=== PATIENT | male | born 1930 | race Caucasian/White ===

== ENCOUNTER 2017-01-18 14:00 | Outpatient (CLI) | payer MEDICARE, OTHER | END 2017-01-18 14:01 | disposition home or self-care (01) | DX: D69.6 Thrombocytopenia, unspecified (principal); M47.816 Spondylosis without myelopathy or radiculopathy, lumbar region; R79.89 Other specified abnormal findings of blood chemistry ==

== ENCOUNTER 2017-04-23 14:42 | Outpatient (CLI) | payer MEDICARE, OTHER ==
[2017-04-23 19:18] LABS: ALBUMIN/GLOBULIN RATIO 1.4 (1.0-2.2); BILIRUBIN,TOTAL 0.6 mg/dL (0.2-1.0); BUN - BLOOD UREA NITROGEN 19 mg/dL (6-20); CALCIUM 9.5 mg/dL (8.5-10.3); CARBON DIOXIDE - CO2 31 mmol/L (21-32); CHLORIDE 100 mmol/L (101-111); CHOL/HDL RATIO 3.3 (<5.0); CHOLESTEROL 169 mg/dL; CREATININE 0.9 mg/dL (0.6-1.2); GFR - MDRD 80 (>89); GLUCOSE 97 mg/dL (70-100); HDL CHOLESTEROL 51 mg/dL; LDL/HDL RATIO 1.5 (<3.6); POTASSIUM 4.1 mmol/L (3.5-5.0); SODIUM 139 mmol/L (135-145); TOTAL PROTEIN 6.8 g/dL (6.7-8.2); TRIGLYCERIDES 217 mg/dL; VLDL CHOLESTEROL 43 mg/dL
[2017-04-23 19:25] LABS: BASOPHILS % (AUTO) 0.7 %; EOSINOPHILS # (AUTO) 0.1 10^3/uL (0.0-0.7); EOSINOPHILS % (AUTO) 2.2 %; HCT - HEMATOCRIT 44.3 % (42.0-52.0); HGB - HEMOGLOBIN 14.8 g/dL (14.0-18.0); LYMPHOCYTES # (AUTO) 1.5 10^3/uL (1.5-3.5); LYMPHOCYTES % (AUTO) 22.4 %; MEAN CORPUSCULAR HEMOGLOBIN 31.8 pg (27.0-31.0); MEAN CORPUSCULAR HGB CONC 33.5 g/dL (32.0-36.0); MEAN CORPUSCULAR VOLUME 94.9 fL (80.0-94.0); MEAN PLATELET VOLUME 9.6 fL (7.4-11.4); MONOCYTES # (AUTO) 0.7 10^3/uL (0.0-1.0); MONOCYTES % (AUTO) 10.5 %; NEUTROPHILS # (AUTO) 4.4 10^3/uL (1.5-6.6); NEUTROPHILS % (AUTO) 64.2 %; NUCLEATED RED BLOOD CELLS AUTO 0.1 /100WBC; RED BLOOD COUNT 4.67 10^6/uL (4.70-6.10); RED CELL DISTRIBUTION WIDTH 15.1 % (12.0-15.0); UNCORRECTED WHITE BLOOD COUNT 6.8 x10^3/uL; WHITE BLOOD COUNT 6.8 x10^3/uL (4.8-10.8)
[2017-04-23 20:01] LABS: HEMOGLOBIN A1C 0.7 g/dL
== END 2017-04-23 14:43 | disposition home or self-care (01) ==
LOC: LAB.F 14:42
PROVIDERS: ATTEND Internal Medicine
DX: E11.9 Type 2 diabetes mellitus without complications (principal); I10 Essential (primary) hypertension; J30.9 Allergic rhinitis, unspecified
CPT/HCPCS: 36415; 80053; 80061; 82043; 82570; 83036; 84443; 85025

== ENCOUNTER 2017-05-25 12:37 | Outpatient (CLI) | payer MEDICARE, OTHER | END 2017-05-25 12:38 | disposition home or self-care (01) | LOC: LAB.F 12:37 | PROVIDERS: ATTEND Internal Medicine | DX: R25.2 Cramp and spasm (principal) | CPT/HCPCS: 36415; 83735 ==

== ENCOUNTER 2017-07-23 14:15 | Outpatient (CLI) | payer MEDICARE, OTHER ==
[2017-07-23 18:33] LABS: CALCIUM 9.8 mg/dL (8.5-10.3); CREATININE 0.9 mg/dL (0.6-1.2); POTASSIUM 4.2 mmol/L (3.5-5.0)
[2017-07-23 19:58] LABS: HEMOGLOBIN A1C 0.8 g/dL
== END 2017-07-23 14:16 | disposition home or self-care (01) ==
LOC: LAB.F 14:15
PROVIDERS: ATTEND Internal Medicine
DX: E11.9 Type 2 diabetes mellitus without complications (principal)
CPT/HCPCS: 36415; 80048; 83036

== ENCOUNTER 2018-01-03 10:13 | Outpatient (CLI) | payer MEDICARE, OTHER ==
[2018-01-03 17:51] LABS: ALBUMIN 4.1 g/dL (3.2-5.5); ALBUMIN/GLOBULIN RATIO 1.5 (1.0-2.2); ALKALINE PHOSPHATASE 38 IU/L (42-121); ALT ALANINE AMINOTRANSFERASE 14 IU/L (10-60); AST ASPARTATE AMINOTRANSFERASE 16 IU/L (10-42); BILIRUBIN,TOTAL 0.7 mg/dL (0.2-1.0); BUN - BLOOD UREA NITROGEN 20 mg/dL (6-20); CALCIUM 9.4 mg/dL (8.5-10.3); CARBON DIOXIDE - CO2 29 mmol/L (21-32); CHLORIDE 101 mmol/L (101-111); CHOL/HDL RATIO 3.2 (<5.0); CHOLESTEROL 164 mg/dL; CREATININE 0.9 mg/dL (0.6-1.2); GFR - MDRD 80 (>89); GLUCOSE 121 mg/dL (70-100); HDL CHOLESTEROL 52 mg/dL; LDL CHOLESTEROL,CALCULATED 102 mg/dL; SODIUM 139 mmol/L (135-145); TOTAL PROTEIN 6.9 g/dL (6.7-8.2); VLDL CHOLESTEROL 10 mg/dL
[2018-01-03 18:29] LABS: HB2 TOTAL 16.5 g/dL; HEMOGLOBIN A1C 0.74 g/dL; HEMOGLOBIN A1C % 6.3 % (4.6-6.2)
== END 2018-01-03 10:14 | disposition home or self-care (01) ==
LOC: LAB.F 10:13
PROVIDERS: ATTEND Family Medicine
DX: I10 Essential (primary) hypertension (principal); I25.10 Atherosclerotic heart disease of native coronary artery without angina pectoris; E11.9 Type 2 diabetes mellitus without complications
CPT/HCPCS: 36415; 80053; 80061; 83036; 83721

== ENCOUNTER 2019-07-21 11:36 | Outpatient (CLI) | payer MEDICARE | END 2019-07-21 11:37 | disposition home or self-care (01) | LOC: DI 11:36 | PROVIDERS: ATTEND Internal Medicine Cardiovascular Disease | DX: Z95.2 Presence of prosthetic heart valve (principal); I07.1 Rheumatic tricuspid insufficiency | CPT/HCPCS: 93306 ==

== ENCOUNTER 2020-04-22 08:50 | Outpatient (CLI) | payer MEDICARE ==
[2020-04-22 16:05] LABS: INR 2.6 (0.8-1.2); PT - PROTHROMBIN TIME 27.9 secs (9.9-12.6)
== END 2020-04-22 08:51 | disposition home or self-care (01) ==
LOC: LAB.S 08:50
PROVIDERS: ATTEND Internal Medicine
DX: I48.3 Typical atrial flutter (principal)
CPT/HCPCS: 36415; 85610

== ENCOUNTER 2020-04-26 09:04 | Outpatient (CLI) | payer MEDICARE ==
[2020-04-26 15:27] LABS: INR 1.6 (0.8-1.2); PT - PROTHROMBIN TIME 18.1 secs (9.9-12.6)
== END 2020-04-26 09:05 | disposition home or self-care (01) ==
LOC: LAB.S 09:04
PROVIDERS: ATTEND Nurse Practitioner Family
DX: I48.3 Typical atrial flutter (principal)
CPT/HCPCS: 36415; 85610

== ENCOUNTER 2020-04-29 09:25 | Outpatient (CLI) | payer MEDICARE ==
[2020-04-29 15:08] LABS: INR 2.3 (0.8-1.2); PT - PROTHROMBIN TIME 24.6 secs (9.9-12.6)
== END 2020-04-29 09:26 | disposition home or self-care (01) ==
LOC: LAB.S 09:25
PROVIDERS: ATTEND Nurse Practitioner Family
DX: I48.3 Typical atrial flutter (principal)
CPT/HCPCS: 36415; 85610

== ENCOUNTER 2020-05-07 09:12 | Outpatient (CLI) | payer MEDICARE ==
[2020-05-07 15:11] LABS: INR 1.9 (0.8-1.2)
== END 2020-05-07 09:13 | disposition home or self-care (01) ==
LOC: LAB.S 09:12
PROVIDERS: ATTEND Nurse Practitioner Family
DX: I48.3 Typical atrial flutter (principal)
CPT/HCPCS: 36415; 85610

== ENCOUNTER 2020-05-10 09:18 | Outpatient (CLI) | payer MEDICARE ==
[2020-05-10 16:05] LABS: INR 2.7 (0.8-1.2); PT - PROTHROMBIN TIME 29.3 secs (9.9-12.6)
== END 2020-05-10 09:19 | disposition home or self-care (01) ==
LOC: LAB.S 09:18
PROVIDERS: ATTEND Nurse Practitioner Family
DX: I48.3 Typical atrial flutter (principal)
CPT/HCPCS: 36415; 85610

== ENCOUNTER 2020-05-13 09:30 | Outpatient (CLI) | payer MEDICARE ==
[2020-05-13 15:32] LABS: INR 1.8 (0.8-1.2); PT - PROTHROMBIN TIME 20.3 secs (9.9-12.6)
== END 2020-05-13 09:31 | disposition home or self-care (01) ==
LOC: LAB.S 09:30
PROVIDERS: ATTEND Nurse Practitioner Family
DX: I48.3 Typical atrial flutter (principal)
CPT/HCPCS: 36415; 85610

== ENCOUNTER 2020-05-17 09:26 | Outpatient (CLI) | payer MEDICARE ==
[2020-05-17 15:32] LABS: PT - PROTHROMBIN TIME 22.4 secs (9.9-12.6)
== END 2020-05-17 09:27 | disposition home or self-care (01) ==
LOC: LAB.S 09:26
PROVIDERS: ATTEND Nurse Practitioner Family
DX: I48.3 Typical atrial flutter (principal)
CPT/HCPCS: 36415; 85610

== ENCOUNTER 2020-05-24 09:18 | Outpatient (CLI) | payer MEDICARE ==
[2020-05-24 15:18] LABS: PT - PROTHROMBIN TIME 32.4 secs (9.9-12.6)
== END 2020-05-24 09:19 | disposition home or self-care (01) ==
LOC: LAB.S 09:18
PROVIDERS: ATTEND Nurse Practitioner Family
DX: I48.3 Typical atrial flutter (principal)
CPT/HCPCS: 36415; 85610

== ENCOUNTER 2020-06-15 09:43 | Outpatient (CLI) | payer MEDICARE ==
[2020-06-15 14:58] LABS: INR 1.9 (0.8-1.2)
== END 2020-06-15 09:44 | disposition home or self-care (01) ==
LOC: LAB.S 09:43
PROVIDERS: ATTEND Nurse Practitioner Family
DX: I48.3 Typical atrial flutter (principal)
CPT/HCPCS: 36415; 85610

== ENCOUNTER 2020-06-21 09:23 | Outpatient (CLI) | payer MEDICARE ==
[2020-06-21 15:21] LABS: INR 2.4 (0.8-1.2); PT - PROTHROMBIN TIME 26.4 secs (9.9-12.6)
== END 2020-06-21 09:24 | disposition home or self-care (01) ==
LOC: LAB.S 09:23
PROVIDERS: ATTEND Nurse Practitioner Family
DX: I48.3 Typical atrial flutter (principal)
CPT/HCPCS: 36415; 85610

== ENCOUNTER 2020-07-05 09:26 | Outpatient (CLI) | payer MEDICARE ==
[2020-07-05 14:38] LABS: INR 2.1 (0.8-1.2); PT - PROTHROMBIN TIME 22.6 secs (9.9-12.6)
== END 2020-07-05 09:27 | disposition home or self-care (01) ==
LOC: LAB.S 09:26
PROVIDERS: ATTEND Nurse Practitioner Family
DX: I48.3 Typical atrial flutter (principal)
CPT/HCPCS: 36415; 85610

== ENCOUNTER 2020-07-21 13:39 | Outpatient (CLI) | payer MEDICARE | END 2020-07-21 13:40 | disposition critical access hospital (66) | LOC: EMS 13:39 | PROVIDERS: ATTEND Surgery | DX: R53.1 Weakness (principal); R42 Dizziness and giddiness; H53.8 Other visual disturbances; R26.81 Unsteadiness on feet | CPT/HCPCS: A0425; A0427 ==

== ENCOUNTER 2020-07-21 14:25 | Emergency (ER) | payer MEDICARE ==
--- NOTE | 2020-07-21 14:41 | ED Physician Documentation ---
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 He felt very unsteady on his feet and felt worse when he turned his head side to side, possibly worse to the left side. HE also noted change in his vision, stating he saw fine black lines when he looked up at the ceiling. He noticed a similar visiion change yesterday when he was looking at his face while shaving. He denies head injury. No headache, facial weakness/numbness, extremity weakness or paraesthesias, confusion, or word finding difficulties. No chest pain, palpitatons, dyspnea, abd pain, n/v/d, or urinary sx. He has not had a fever, chills, cough or URI sx. No known sick contacts. Denies new meds or mis sing doses of his routine meds. No drugs or alcohol. Denies similar sx in the past. States he had a cardiac ablation about 5 weeks ago and has a follow up appt with his it help desk technician on 07/26, he is on coumadin as well as beta naomie. Review of Systems Constitutional: reports: Reviewed and negative Eyes: reports: Other (change in vision: sees dark black lines at times.). denies: Loss of vision, Decreased vision, Photophobia Ears: reports: Reviewed and negative Nose: reports: Congestion. denies: Rhinorrhea / runny nose, Sinus pressure / pain, Foreign Body Throat: reports: Reviewed and negative Cardiac: reports: Reviewed and negative Respiratory: reports: Reviewed and negative GI: reports: Reviewed and negative : reports: Reviewed and negative Skin: reports: Reviewed and negative Musculoskeletal: reports: Reviewed and negative Neurologic: reports: Other (vertigo and dizziness). denies: Generalized weakness, Focal weakness, Numbness, Difficulty speaking, Near syncope, Syncope, Seizure, Confused, Altered mental status, Unresponsive, Headache, Head injury, LOC Psychiatric: reports: Reviewed and negative Endocrine: reports: Reviewed and negative PD PAST MEDICAL HISTORY - Past Medical History Past Medical History: Yes Cardiovascular: Hypertension, High cholesterol, Coronary artery disease, Atrial fibrillation Respiratory: None Endocrine/Autoimmune: Type 2 diabetes GI: GERD : Incontinence HEENT: Chronic hearing loss, Dental implants Psych: Anxiety Musculoskeletal: Osteoarthritis Derm: None - Past Surgical History Past Surgical History: Yes Cardiovascular: CABG, Coronary stent HEENT: Cataracts Derm: Skin cancer surgery - Present Medications Home Medications: Ambulatory Orders Medication Instructions Recorded Confirmed ALPRAZolam [Xanax] 0.5 mg ORAL DAILY PRN 09/26/15 09/26/15 Aspirin [Aspir 81] 81 mg ORAL DAILY 09/26/15 09/26/15 Atorvastatin [Lipitor] 40 mg ORAL DAILY 09/26/15 09/26/15 Finasteride 5 mg ORAL DAILY 09/26/15 09/26/15 Metoprolol Tartrate 12.5 mg ORAL DAILY 09/26/15 09/26/15 Pantoprazole [Protonix] 20 mg ORAL DAILY 09/26/15 09/26/15 lisinopriL [Lisinopril] 5 mg ORAL DAILY 09/26/15 09/26/15 metFORMIN [Glucophage] 500 mg ORAL DAILY 09/26/15 09/26/15 - Allergies Allergies/Adverse Reactions: Allergies Allergy/AdvReac Type Severity Reaction Status Date / Time No Known Drug Allergies Allergy Verified 07/21/20 14:33 - Social History Does the pt smoke?: No Smoking Status: Never smoker Does the pt drink ETOH?: No Does the pt have substance abuse?: No - Immunizations Immunizations are current?: Yes - POLST Patient has POLST: No PD ED PE NORMAL - Vitals Vital signs reviewed: Yes - General General: Alert and oriented X 3, No acute distress, Well developed/nourished - HEENT HEENT: Atraumatic, PERRL, Ears normal, Moist mucous membranes, Pharynx benign, Other (pt w/ leftward gaze, does not follow EOM to the right past midline but does not have heminopsia, is able to see in both visual haddad. left eyelid droop which is baseline for patient. ). No: Dentition benign (poor dentition, partial dentures) - Neck Neck: Supple, no meningeal sign, No bony TTP - Cardiac Cardiac: RRR, No murmur, No gallop, No rub - Respiratory Respiratory: No respiratory distress, Clear bilaterally - Abdomen Abdomen: Normal bowel sounds, Soft, Non tender, Non distended - Derm Derm: Normal color, Warm and dry, No rash - Extremities Extremities: No deformity, No tenderness to palpate, Normal ROM s pain, No calf tenderness / cord - Neuro Neuro: Alert and oriented X 3, No motor deficit, No sensory deficit, Normal speech Eye Opening: Spontaneous Motor: Obeys Commands Verbal: Oriented GCS Score: 15 - Psych Psych: Normal mood, Normal affect Results - Vitals Vitals: Vital Signs - 24 hr 07/21/20 07/21/20 07/21/20 14:33 15:06 15:30 Temperature 36.9 C Heart Rate 84 73 73 Respiratory 12 16 20 Rate Blood Pressure 126/105 H 123/61 145/77 H O2 Saturation 93 95 100 07/21/20 07/21/20 07/21/20 16:00 16:30 17:00 Temperature Heart Rate 70 74 70 Respiratory 19 20 18 Rate Blood Pressure 139/78 H 129/70 127/81 H O2 Saturation 98 94 94 07/21/20 07/21/20 07/21/20 17:30 18:00 20:00 Temperature Heart Rate 76 75 80 Respiratory 21 20 16 Rate Blood Pressure 137/84 H 142/76 H 155/87 H O2 Saturation 95 96 96 07/21/20 20:30 Temperature Heart Rate 79 Respiratory 18 Rate Blood Pressure 138/86 H O2 Saturation 99 Oxygen O2 Source Room air - EKG (time done) 15:10 Rate: Rate (enter#) (69) Intervals: Normal [place] Ischemia: Normal ST segments Compare to prior EKG: Other (prior RBB. ) Computer interpretation: Agree with computer - Labs Labs: Laboratory Tests 07/21/20 07/21/20 07/21/20 14:50 14:50 14:50 WBC 8.1 RBC 4.35 L Hgb 13.5 L Hct 42.4 MCV 97.5 H MCH 31.0 MCHC 31.8 L RDW 15.8 H Plt Count 134 MPV 10.8 Neut # (Auto) 5.7 Lymph # (Auto) 1.2 L Grundy # (Auto) 0.9 Eos # (Auto) 0.2 Baso # (Auto) 0.1 Absolute Nucleated RBC 0.00 Nucleated RBC % 0.0 PT 25.7 H INR 2.4 H Sodium Potassium Chloride Carbon Dioxide Anion Gap BUN Creatinine Estimated GFR (MDRD) Glucose Calcium Troponin I High Sens 8.5 Urine Color Urine Clarity Urine pH Ur Specific Kaiser Urine Protein Urine Glucose (UA) Urine Ketones Urine Occult Blood Urine Nitrite Urine Bilirubin Urine Urobilinogen Ur Leukocyte Esterase Ur Microscopic Review Urine Culture Comments 07/21/20 07/21/20 14:50 15:32 WBC RBC Hgb Hct MCV MCH MCHC RDW Plt Count MPV Neut # (Auto) Lymph # (Auto) Grundy # (Auto) Eos # (Auto) Baso # (Auto) Absolute Nucleated RBC Nucleated RBC % PT INR Sodium 138 Potassium 3.9 Chloride 101 Carbon Dioxide 26 Anion Gap 11.0 BUN 17 Creatinine 0.9 Estimated GFR (MDRD) 79 L Glucose 137 H Calcium 9.6 Troponin I High Sens Urine Color YELLOW Urine Clarity CLEAR Urine pH 5.5 Ur Specific Kaiser 1.025 Urine Protein NEGATIVE Urine Glucose (UA) NEGATIVE Urine Ketones NEGATIVE Urine Occult Blood NEGATIVE Urine Nitrite NEGATIVE Urine Bilirubin NEGATIVE Urine Urobilinogen 0.2 (NORMAL) Ur Leukocyte Esterase NEGATIVE Ur Microscopic Review NOT INDICATED Urine Culture Comments NOT INDICATED PD MEDICAL DECISION MAKING - ED course Complexity details: reviewed old records, reviewed results, re-evaluated patient, considered differential, d/w patient, d/w family, d/w PMD (Briefly reviewed w/ Dr. Burk) ED course: 89 yo M who presented with dizziness (described by patient as vertigo). On exam he was noted to have a leftward gaze and would not follow via EOM to the right visual field, though stated he could see in the right visual field. Remainder of physical exam negative, CT head negative, labs reassuring. I d/w Dr. Burk and received approval for MRI. We obtained MRI of the brain to r/o CVA or possible cranial nerve lesions. The MRI was negative for acute findings. Pt continued to have dizziness but felt he could safely get into the house w/ assistance from his . Labs and imaging findings reviewed in detail w/ pt and his . I advised follow up w/ his PCP, consider referral to PT for balance therapy or neuro if no improvement, and may also follow up with refinery operator crude unit for vision changes. Discussed return precautions w/ patient and in detail. Departure - Departure Disposition: 01 Home, Self Care Clinical Impression: Change in vision, Vertigo Condition: Good Instructions: ED Vertigo Unspecified Comments: You presented with dizziness/vertigo and vision changes. We obtained labs which were reassuring, a CT of your brain, and an MRI of the brain and these were negative for acute problems. You do have some sinus congestion and polyps so I would recommend trying Flonase nasal spray and a non-drowsy allergy medication such as cetirizine. Please move slowly and use your walker at home. Follow up with your primary doctor with the next few days. If symptoms are not improving they may refer you to physical therapy or neurology for your persistent dizziness. Discharge Date/Time: 07/21/20 20:39
[2020-07-21 15:09] LABS: BASOPHILS # (AUTO) 0.1 10^3/uL (0.0-0.1); BASOPHILS % (AUTO) 0.6 %; EOSINOPHILS # (AUTO) 0.2 10^3/uL (0.0-0.7); EOSINOPHILS % (AUTO) 2.8 %; HGB - HEMOGLOBIN 13.5 g/dL (14.0-18.0); LYMPHOCYTES # (AUTO) 1.2 10^3/uL (1.5-3.5); LYMPHOCYTES % (AUTO) 14.8 %; MEAN CORPUSCULAR HGB CONC 31.8 g/dL (32.0-36.0); MEAN CORPUSCULAR VOLUME 97.5 fL (80.0-94.0); MEAN PLATELET VOLUME 10.8 fL (7.4-11.4); MONOCYTES # (AUTO) 0.9 10^3/uL (0.0-1.0); MONOCYTES % (AUTO) 10.5 %; NEUTROPHILS # (AUTO) 5.7 10^3/uL (1.5-6.6); NEUTROPHILS % (AUTO) 70.7 %; PLT - PLATELET COUNT 134 10^3/uL (130-450); RED BLOOD COUNT 4.35 10^6/uL (4.70-6.10); RED CELL DISTRIBUTION WIDTH 15.8 % (12.0-15.0); WHITE BLOOD COUNT 8.1 x10^3/uL (4.8-10.8)
[2020-07-21 15:15] LABS: CALCIUM 9.6 mg/dL (8.5-10.3); CREATININE 0.9 mg/dL (0.6-1.2)
[2020-07-21 15:17] LABS: INR 2.4 (0.8-1.2); PT - PROTHROMBIN TIME 25.7 secs (9.9-12.6)
--- NOTE | 2020-07-21 15:18 | CT Report ---
PROCEDURE: HEAD WO INDICATIONS: vertigo, left hand numbness TECHNIQUE: Noncontrast 4.5 mm thick angled axial sections acquired from the foramen magnum to the vertex. For r adiation dose reduction, the following was used: automated exposure control, adjustment of mA and/or kV according to patient size. COMPARISON: 07/30/2014 FINDINGS: Image quality: Excellent. CSF spaces: Basal cisterns are patent. No extra-axial fluid collections. The ventricles are symmet tere in size and shape. Brain: No intracranial bleeds or masses. There is cerebral volume loss for age, with resultant vent ricular and sulcal prominence. There are periventricular and deep white matter chronic small vessel ischemic changes. There is intracranial internal carotid artery atherosclerosis. Skull and face: Calvarium and visualized facial bones appear intact, without suspicious lesions. Sinuses: There is a small polyp versus mucous retention cyst seen in the anterior inferior right maxi llary sinus. Rest of the sinuses and mastoids are clear. IMPRESSION: 1. No CT evidence of acute intracranial pathology. 2. No significant changes from 2014 study. 3. Polyp versus mucous retention cyst in right maxillary sinus. Reviewed by: Deon Carr MD on 07/21/2020 3:16 PM PDT Approved by: Deon Carr MD on 07/21/2020 3:16 PM PDT Station ID: [id number]
[2020-07-21 15:43] LABS: BILIRUBIN,URINE NEGATIVE (NEGATIVE); GLUCOSE, URINE (UA) NEGATIVE (NEGATIVE); KETONES,URINE (UA) NEGATIVE (NEGATIVE); LEUKOCYTE ESTERASE, URINE NEGATIVE (NEGATIVE); NITRITE,URINE NEGATIVE (NEGATIVE); OCCULT BLOOD,URINE NEGATIVE (NEGATIVE); PH,URINE 5.5 PH (5.0-7.5); PROTEIN,URINE NEGATIVE (NEGATIVE); UROBILINOGEN,URINE 0.2 (NORMAL) E.U./dL (NORMAL)
[2020-07-21 15:48] LABS: CLARITY,URINE CLEAR (CLEAR)
[2020-07-21] MEDS ORDERED: GADOBUTROL 10 MMOL/10 ML VIAL ONE (18:12)
[2020-07-21] MEDS ORDERED: GADOBUTROL 10 MMOL/10 ML VIAL IVP ONE (19:11)
--- NOTE | 2020-07-21 20:08 | MRI Report ---
PROCEDURE: Brain W/WO INDICATIONS: leftward gaze, dizzy r/o stroke or cranial nerve l CONTRAST: IV CONTRAST: Gadavist ml: 10 TECHNIQUE: Noncontrast sagittal T1 spin echo, axial T2 fast spin echo, axial FLAIR, axial gradient echo, axial d iffusion and ADC through the brain. Axial 3-D CISS, thin-slice axial T1 spin echo with fat saturatio n through the skull base. After the administration of contrast, axial and coronal thin-slice T1 spin echo with fat saturation through the skull base, axial T1 spin echo with fat saturation through the brain. COMPARISON: None. FINDINGS: Image quality: There is mild motion artifact. Cranial nerves: The visualized cranial nerves appear normal in size without definite abnormal enhanc ement or extrinsic mass effect. CSF spaces: There is moderate cerebral volume loss with prominence of the ventricles and sulci. No ex tra-axial fluid collections. Basal cisterns are patent. Brain: Diffusion-weighted images demonstrate no acute infarcts. No intracranial hemorrhage, mass, or mass effect. There are periventricular foci of white matter T2 hyperintensity consistent with mild to moderate chronic white matter small vessel ischemic changes. Alvarenga-white matter interface appears pre served. No definite abnormal cranial enhancement. Brainstem appears within normal limits intravascula r flow voids appear preserved. There is tortuosity of the cavernous segments of the internal carotid arteries bilaterally. Skull and face: Calvarial marrow signal is normal. Orbits appear normal. Sinuses: Visualized sinuses demonstrate mild mucosal opacification in the ethmoid and sphenoid sinuse s. There is a tiny retention cyst or mucosal polyp within the inferior right maxillary sinus partiall y visualized. There is partial fluid opacification of the left mastoid air cells compatible with mast oiditis. IMPRESSION: 1. No acute infarcts, intracranial hemorrhage, or mass effect. 2. No definite abnormal enhancement or extrinsic mass effect on the visualized cranial nerves. 3. Moderate cerebral volume loss and mild to moderate chronic white matter small vessel ischemic rivera ges. 4. Fluid opacification of the left mastoid air cells compatible with mastoiditis. 5. Sinus mucosal disease involving the ethmoid and sphenoid sinuses as well as a mucosal polyp or sin us retention cyst in the right maxillary sinus. Reviewed by: Paras Storm MD on 07/21/2020 8:06 PM PDT Approved by: Paras Storm MD on 07/21/2020 8:06 PM PDT Station ID: [id number]
[2020-07-21 20:39] VITALS: BP 138/86
== END 2020-07-21 20:39 | disposition home or self-care (01) ==
LOC: EDUNIT# → ED 14:25
DX: R42 Dizziness and giddiness (principal); H53.8 Other visual disturbances; J32.9 Chronic sinusitis, unspecified; J33.8 Other polyp of sinus; I45.10 Unspecified right bundle-branch block; I48.91 Unspecified atrial fibrillation; Z79.01 Long term (current) use of anticoagulants; Z79.82 Long term (current) use of aspirin; I10 Essential (primary) hypertension; E11.9 Type 2 diabetes mellitus without complications; Z79.84 Long term (current) use of oral hypoglycemic drugs
CPT/HCPCS: 36415; 70450; 70553; 80048; 81003; 84484; 85025; 85610; 93005; 99284; A9585; 81001; 87086

== ENCOUNTER 2020-07-22 13:05 | Outpatient (CLI) | payer MEDICARE | END 2020-07-22 13:06 | disposition EMS.NT | LOC: EMS 13:05 | PROVIDERS: ATTEND Surgery | DX: R42 Dizziness and giddiness (principal); H53.8 Other visual disturbances; R26.81 Unsteadiness on feet ==

== ENCOUNTER 2020-07-22 15:14 | Outpatient (CLI) | payer MEDICARE | END 2020-07-22 15:15 | disposition short-term general hospital (02) | LOC: EMS 15:14 | PROVIDERS: ATTEND Surgery | DX: R42 Dizziness and giddiness (principal); H53.9 Unspecified visual disturbance | CPT/HCPCS: A0425; A0429 ==

== ENCOUNTER 2020-07-27 09:18 | Outpatient (CLI) | payer MEDICARE ==
[2020-07-27 15:13] LABS: INR 1.8 (0.8-1.2); PT - PROTHROMBIN TIME 19.1 secs (9.9-12.6)
== END 2020-07-27 09:19 | disposition home or self-care (01) ==
LOC: LAB.S 09:18
PROVIDERS: ATTEND Nurse Practitioner Family
DX: I48.3 Typical atrial flutter (principal)
CPT/HCPCS: 36415; 85610

== ENCOUNTER 2020-08-03 09:28 | Outpatient (CLI) | payer MEDICARE ==
[2020-08-03 15:52] LABS: INR 2.5 (0.8-1.2); PT - PROTHROMBIN TIME 25.9 secs (9.9-12.6)
== END 2020-08-03 09:29 | disposition home or self-care (01) ==
LOC: LAB.S 09:28
PROVIDERS: ATTEND Nurse Practitioner Family
DX: I48.3 Typical atrial flutter (principal)
CPT/HCPCS: 36415; 85610

== ENCOUNTER 2020-08-31 10:42 | Outpatient (CLI) | payer MEDICARE | END 2020-08-31 10:43 | disposition home or self-care (01) | LOC: LAB.S 10:42 | PROVIDERS: ATTEND Nurse Practitioner Family | DX: I48.3 Typical atrial flutter (principal) | CPT/HCPCS: 85610 ==

== ENCOUNTER 2020-09-21 11:37 | Outpatient (CLI) | payer MEDICARE ==
[2020-09-21 14:41] LABS: INR 2.7 (0.8-1.2); PT - PROTHROMBIN TIME 28.1 secs (9.9-12.6)
== END 2020-09-21 11:38 | disposition home or self-care (01) ==
LOC: LAB.S 11:37
PROVIDERS: ATTEND Nurse Practitioner Family
DX: I48.3 Typical atrial flutter (principal)
CPT/HCPCS: 36415; 85610

== ENCOUNTER 2020-10-19 11:43 | Outpatient (CLI) | payer MEDICARE | END 2020-10-19 11:44 | disposition home or self-care (01) | LOC: LAB.S 11:43 | PROVIDERS: ATTEND Internal Medicine | DX: I48.3 Typical atrial flutter (principal) | CPT/HCPCS: 85610 ==

== ENCOUNTER 2020-11-30 11:12 | Outpatient (CLI) | payer MEDICARE | END 2020-11-30 11:13 | disposition home or self-care (01) | LOC: LAB.S 11:12 | PROVIDERS: ATTEND Nurse Practitioner Family | DX: I48.3 Typical atrial flutter (principal) | CPT/HCPCS: 36415; 85610 ==

== ENCOUNTER 2021-01-11 10:55 | Outpatient (CLI) | payer MEDICARE | END 2021-01-11 10:56 | disposition home or self-care (01) | LOC: LAB.S 10:55 | PROVIDERS: ATTEND Nurse Practitioner Family | DX: I48.3 Typical atrial flutter (principal) | CPT/HCPCS: 85610 ==

== ENCOUNTER 2021-02-22 11:07 | Outpatient (CLI) | payer MEDICARE | END 2021-02-22 11:08 | disposition home or self-care (01) | LOC: LAB.S 11:07 | PROVIDERS: ATTEND Nurse Practitioner Family | DX: I48.3 Typical atrial flutter (principal) | CPT/HCPCS: 85610 ==

== ENCOUNTER 2021-03-15 10:50 | Outpatient (CLI) | payer MEDICARE | END 2021-03-15 10:51 | disposition home or self-care (01) | LOC: LAB.S 10:50 | PROVIDERS: ATTEND Nurse Practitioner Family | DX: I48.3 Typical atrial flutter (principal) | CPT/HCPCS: 36416; 85610 ==

== ENCOUNTER 2021-04-26 11:28 | Outpatient (CLI) | payer MEDICARE | END 2021-04-26 11:29 | disposition home or self-care (01) | LOC: LAB.S 11:28 | PROVIDERS: ATTEND Nurse Practitioner Family | DX: I48.3 Typical atrial flutter (principal) | CPT/HCPCS: 36416; 85610 ==

== ENCOUNTER 2021-05-03 14:25 | Day surgery (SDC) | payer MEDICARE ==
--- NOTE | 2021-05-03 14:51 | ED Physician Documentation ---
History of Present Illness - Stated complaint Stated Complaint: VOMITING,REFLUX ISSUE - Chief complaint Chief Complaint: Critical Care - History obtained from History obtained from: Patient - History of Present Illness Timing: Last night Pain level max: 5 Pain level now: 5 - Additonal information Additional information: 89-year-old male presents to the emergency department stating he has had difficulty swallowing and keeping food down since yesterday. He states this started after dinner last night. He was eating spicy beef noodles.He states that he was able to keep his pills down today and was able to keep some water down initially, but since that time. Has not been able to keep anything down including saliva. Review of Systems Ten Systems: 10 systems reviewed and negative Constitutional: denies: Fever, Chills GI: reports: Vomiting. denies: Diarrhea Skin: denies: Rash Musculoskeletal: denies: Neck pain, Back pain Neurologic: denies: Headache PD PAST MEDICAL HISTORY - Past Medical History Cardiovascular: Hypertension, High cholesterol, Coronary artery disease, Atrial fibrillation Respiratory: None Endocrine/Autoimmune: Type 2 diabetes GI: GERD : Incontinence HEENT: Chronic hearing loss, Dental implants Psych: Anxiety Musculoskeletal: Osteoarthritis Derm: None - Past Surgical History Past Surgical History: Yes Cardiovascular: CABG, Coronary stent HEENT: Cataracts Derm: Skin cancer surgery - Present Medications Home Medications: Ambulatory Orders Medication Instructions Recorded Confirmed ALPRAZolam [Xanax] 0.5 mg ORAL DAILY PRN 09/26/15 09/26/15 Aspirin [Aspir 81] 81 mg ORAL DAILY 09/26/15 09/26/15 Atorvastatin [Lipitor] 40 mg ORAL DAILY 09/26/15 09/26/15 Finasteride 5 mg ORAL DAILY 09/26/15 09/26/15 Metoprolol Tartrate 12.5 mg ORAL DAILY 09/26/15 09/26/15 Pantoprazole [Protonix] 20 mg ORAL DAILY 09/26/15 09/26/15 lisinopriL [Lisinopril] 5 mg ORAL DAILY 09/26/15 09/26/15 metFORMIN [Glucophage] 500 mg ORAL DAILY 09/26/15 09/26/15 - Allergies Allergies/Adverse Reactions: Allergies Allergy/AdvReac Type Severity Reaction Status Date / Time No Known Drug Allergies Allergy Verified 05/03/21 14:37 - Social History Does the pt smoke?: No Smoking Status: Never smoker Does the pt drink ETOH?: No Does the pt have substance abuse?: No - Immunizations Immunizations are current?: Yes - POLST Patient has POLST: No PD ED PE NORMAL - Vitals Vital signs reviewed: Yes - General General: Alert and oriented X 3, No acute distress - HEENT HEENT: Moist mucous membranes - Neck Neck: Supple, no meningeal sign - Cardiac Cardiac: RRR - Respiratory Respiratory: No respiratory distress, Clear bilaterally - Abdomen Abdomen: Soft, Non tender, Non distended - Derm Derm: Warm and dry - Neuro Neuro: Alert and oriented X 3 Results - Vitals Vitals: Vital Signs - 24 hr 05/03/21 05/03/21 05/03/21 14:31 14:35 15:03 Temperature 36.1 C L 36.1 C L 36.9 C Heart Rate 55 L 55 L 58 L Respiratory 18 18 20 Rate Blood Pressure 155/86 H 155/86 H 152/80 H O2 Saturation 96 96 95 05/03/21 05/03/21 05/03/21 18:55 19:00 19:05 Temperature 35.6 C L 35.6 C L 35.6 C L Heart Rate 93 66 72 Respiratory 16 23 19 Rate Blood Pressure 191/97 H 191/97 H 207/77 H O2 Saturation 96 99 99 05/03/21 05/03/21 05/03/21 19:10 19:15 19:20 Temperature 35.6 C L 35.6 C L 35.7 C L Heart Rate 69 66 69 Respiratory 20 20 18 Rate Blood Pressure 165/95 H 152/95 H 172/82 H O2 Saturation 99 100 100 05/03/21 05/03/21 05/03/21 19:25 19:30 19:35 Temperature 35.7 C L 35.7 C L 36.5 C Heart Rate 75 63 71 Respiratory 19 19 16 Rate Blood Pressure 173/83 H 162/88 H 179/77 H O2 Saturation 95 95 96 05/03/21 05/03/21 05/03/21 19:41 19:55 20:10 Temperature 36.5 C 36.6 C 36.6 C Heart Rate 61 65 67 Respiratory 18 14 14 Rate Blood Pressure 166/71 H 156/73 H 162/75 H O2 Saturation 99 93 93 05/03/21 05/03/21 05/03/21 20:15 20:30 20:45 Temperature 36.7 C 36.6 C 36.6 C Heart Rate 61 58 L 62 Respiratory 19 18 18 Rate Blood Pressure 162/75 H 147/74 H 152/74 H O2 Saturation 95 98 98 05/03/21 05/03/21 21:00 21:15 Temperature 36.6 C 36.6 C Heart Rate 66 60 Respiratory 18 14 Rate Blood Pressure 162/73 H 160/77 H O2 Saturation 98 99 Oxygen O2 Source Room air - EKG (time done) 1433 Rate: Rate (enter#) (59) Rhythm: NSR, Other (PAC) [place]: Normal Intervals: Normal SC QRS: Normal Ischemia: Normal ST segments - Labs Labs: Laboratory Tests 05/03/21 05/03/21 15:43 15:43 WBC 5.8 RBC 4.78 Hgb 14.5 Hct 45.2 MCV 94.6 H MCH 30.3 MCHC 32.1 RDW 15.4 H Plt Count 151 MPV 10.5 Neut # (Auto) 3.7 Lymph # (Auto) 1.3 L F[place] # (Auto) 0.6 Eos # (Auto) 0.2 Baso # (Auto) 0.1 Absolute Nucleated RBC 0.00 Nucleated RBC % 0.0 Sodium 140 Potassium 3.6 Chloride 102 Carbon Dioxide 31 Anion Gap 7.0 BUN 19 Creatinine 0.8 Estimated GFR (MDRD) 91 Glucose 130 H Calcium 9.7 Total Bilirubin 0.6 AST 17 ALT 19 Alkaline Phosphatase 50 Total Protein 7.1 Albumin 4.3 Globulin 2.8 Albumin/Globulin Ratio 1.5 Lipase 23 PD MEDICAL DECISION MAKING - ED course Complexity details: reviewed results, re-evaluated patient, considered differential, d/w patient ED course: Patient with a presumed food impaction in the esophagus. Discussed the case with Dr. Lora, general surgery who will take the patient to the OR. This document was made in part using voice recognition software. While efforts are made to proofread this document, sound alike and grammatical errors may occur. Departure - Departure Disposition: ED Transfer to [facility] Clinical Impression: Food impaction of esophagus Qualifiers: Encounter type: initial encounter Qualified Code(s): T18.128A - Food in esophagus causing other injury, initial encounter Condition: Good Discharge Date/Time: 05/03/21 17:02
[2021-05-03] MEDS ORDERED: SODIUM CHLORIDE 0.9% 1,000 ML IV STA (15:28)
[2021-05-03] MEDS ORDERED: ONDANSETRON 4 MG/2 ML VIAL IVP STA (15:28)
[2021-05-03] MEDS ORDERED: GLUCAGON 1 MG/ML VIAL IVP STA (15:28)
[2021-05-03] MEDS ORDERED: MAG HYDROX/AL HYDROX/SIMETH 30 ML UDC PO STA (15:29)
[2021-05-03 15:47] LABS: BASOPHILS # (AUTO) 0.1 10^3/uL (0.0-0.1); BASOPHILS % (AUTO) 0.9 %; EOSINOPHILS # (AUTO) 0.2 10^3/uL (0.0-0.7); EOSINOPHILS % (AUTO) 2.8 %; HCT - HEMATOCRIT 45.2 % (42.0-52.0); HGB - HEMOGLOBIN 14.5 g/dL (14.0-18.0); LYMPHOCYTES # (AUTO) 1.3 10^3/uL (1.5-3.5); LYMPHOCYTES % (AUTO) 21.5 %; MEAN CORPUSCULAR HEMOGLOBIN 30.3 pg (27.0-31.0); MEAN CORPUSCULAR HGB CONC 32.1 g/dL (32.0-36.0); MEAN CORPUSCULAR VOLUME 94.6 fL (80.0-94.0); MEAN PLATELET VOLUME 10.5 fL (7.4-11.4); MONOCYTES # (AUTO) 0.6 10^3/uL (0.0-1.0); MONOCYTES % (AUTO) 10.2 %; NEUTROPHILS # (AUTO) 3.7 10^3/uL (1.5-6.6); NEUTROPHILS % (AUTO) 64.3 %; PLT - PLATELET COUNT 151 10^3/uL (130-450); RED BLOOD COUNT 4.78 10^6/uL (4.70-6.10); RED CELL DISTRIBUTION WIDTH 15.4 % (12.0-15.0); WHITE BLOOD COUNT 5.8 x10^3/uL (4.8-10.8)
[2021-05-03 16:06] LABS: ALBUMIN 4.3 g/dL (3.2-5.5); ALBUMIN/GLOBULIN RATIO 1.5 (1.0-2.2); BILIRUBIN,TOTAL 0.6 mg/dL (0.2-1.0); CALCIUM 9.7 mg/dL (8.5-10.3); CREATININE 0.8 mg/dL (0.6-1.2); POTASSIUM 3.6 mmol/L (3.5-5.0); TOTAL PROTEIN 7.1 g/dL (6.7-8.2)
--- NOTE | 2021-05-03 16:27 | HISTORY & PHYSICAL EXAMINATION ---
HPI - Admitted From Admitted from: ED - History Obtained From History obtained from: Patient, Family Exam limitations: No limitations - History of Present Illness Pain/Problem Location Description: No pain. Unable to swallow since last PM Context-Pain started w/: reports: Eating Timing: reports: Abrupt onset Duration: reports: Hours: (18) Associated symptoms: denies: Nausea HPI Comment/Other: 89-year-old gentleman presented to the emergency room with his this afternoon complaining of difficulty swallowing. He reports that the problem started last evening after eating spicy beef and noodles.He felt like it may have gone all the way down and he took his pills for bedtime but then he threw those up. Currently is not able to tolerate his own secretions or water. He received Reglan and glucagon in the emergency room with no relief.He denies any similar symptoms to this in the past. He tells me that he feels like he may have scarred his esophagus because he loves hot peppers. PMH/PSH - Past Medical History Cardiovascular: positive: Hypertension, High cholesterol, Coronary artery disease, Atrial fibrillation Respiratory: positive: None Endocrine/Autoimmune: positive: Type 2 diabetes GI: positive: GERD : positive: Incontinence HEENT: positive: Chronic hearing loss, Dental implants Psych: positive: Anxiety Musculoskeletal: positive: Osteoarthritis Derm: positive: None MRSA Hx?: No - Past Surgical History Cardiovascular: positive: CABG, Coronary stent HEENT: positive: Cataracts Derm: positive: Skin cancer surgery Social & Family Hx - Living Situation Living Arrangement: At home - Social History Does the pt smoke?: No Smoking Status: Never smoker Does the pt drink ETOH?: No Does the pt have substance abuse?: No - POLST Patient has POLST: No Meds/Allgy - Home Medications Home Medications: Ambulatory Orders Medication Instructions Recorded Confirmed ALPRAZolam [Xanax] 0.5 mg ORAL DAILY PRN 09/26/15 09/26/15 Aspirin [Aspir 81] 81 mg ORAL DAILY 09/26/15 09/26/15 Atorvastatin [Lipitor] 40 mg ORAL DAILY 09/26/15 09/26/15 Finasteride 5 mg ORAL DAILY 09/26/15 09/26/15 Metoprolol Tartrate 12.5 mg ORAL DAILY 09/26/15 09/26/15 Pantoprazole [Protonix] 20 mg ORAL DAILY 09/26/15 09/26/15 lisinopriL [Lisinopril] 5 mg ORAL DAILY 09/26/15 09/26/15 metFORMIN [Glucophage] 500 mg ORAL DAILY 09/26/15 09/26/15 - Allergies Allergies/Adverse Reactions: Allergies Allergy/AdvReac Type Severity Reaction Status Date / Time No Known Drug Allergies Allergy Verified 05/03/21 14:37 Review of Systems - All Other Systems All Other Systems: reports: Reviewed and negative Exam - Vital Signs Reviewed Vital Signs: Yes Vital Signs: Vital Signs x48h Temp Pulse Resp BP Pulse Ox 05/03/21 15:03 36.9 C 58 L 20 152/80 H 95 05/03/21 14:31 36.1 C L 55 L 18 155/86 H 96 - Physical Exam General Appearance: positive: No acute distress, Alert Eyes Bilateral: positive: Normal inspection, PERRL, EOMI ENT: positive: ENT inspection nml, Pharynx nml, No signs of dehydration Neck: positive: Nml inspection Respiratory: positive: Chest non-tender, No respiratory distress, Breath sounds nml Cardiovascular: positive: Regular rate & rhythm, No murmur Peripheral Pulses: positive: 0 Abdomen: positive: Non-tender, Nml bowel sounds, No distention Back: positive: Nml inspection Skin: positive: Color nml Extremities: positive: Non-tender, Pedal edema Neurologic/Psychiatric: positive: Oriented x3 Results - Lab Results Fish Bones: 05/03/21 15:43 05/03/21 15:43 Other Lab Results: Lab Results x24hrs 05/03/21 05/03/21 Range/Units 15:43 15:43 WBC 5.8 (4.8-10.8) x10^3/uL RBC 4.78 (4.70-6.10) 10^6/uL Hgb 14.5 (14.0-18.0) g/dL Hct 45.2 (42.0-52.0) % MCV 94.6 H (80.0-94.0) fL MCH 30.3 (27.0-31.0) pg MCHC 32.1 (32.0-36.0) g/dL RDW 15.4 H (12.0-15.0) % Plt Count 151 (130-450) 10^3/uL MPV 10.5 (7.4-11.4) fL Neut # (Auto) 3.7 (1.5-6.6) 10^3/uL Lymph # (Auto) 1.3 L (1.5-3.5) 10^3/uL Worth # (Auto) 0.6 (0.0-1.0) 10^3/uL Eos # (Auto) 0.2 (0.0-0.7) 10^3/uL Baso # (Auto) 0.1 (0.0-0.1) 10^3/uL Absolute Nucleated RBC 0.00 x10^3/uL Nucleated RBC % 0.0 /100WBC Sodium 140 (135-145) mmol/L Potassium 3.6 (3.5-5.0) mmol/L Chloride 102 (101-111) mmol/L Carbon Dioxide 31 (21-32) mmol/L Anion Gap 7.0 (6-13) BUN 19 (6-20) mg/dL Creatinine 0.8 (0.6-1.2) mg/dL Estimated GFR (MDRD) 91 (>89) Glucose 130 H (70-100) mg/dL Calcium 9.7 (8.5-10.3) mg/dL Total Bilirubin 0.6 (0.2-1.0) mg/dL AST 17 (10-42) IU/L ALT 19 (10-60) IU/L Alkaline Phosphatase 50 (42-121) IU/L Total Protein 7.1 (6.7-8.2) g/dL Albumin 4.3 (3.2-5.5) g/dL Globulin 2.8 (2.1-4.2) g/dL Albumin/Globulin Ratio 1.5 (1.0-2.2) Lipase 23 (22-51) U/L Impression/Plan - Problem List Problem List: Impacted food bolus in the setting of a otherwise asymptomatic gentleman. He denies any pain. We discussed the risks and benefits of EGD with food bolus extraction and the patient is expressed a desire to have the procedure this evening.
[2021-05-03] MEDS ORDERED: SUCCINYLCHOLINE 200 MG/10 ML VIAL ONE (16:51)
[2021-05-03] MEDS ORDERED: PROPOFOL 200 MG/20 ML VIAL IVP ONE (16:51)
[2021-05-03] MEDS ORDERED: ATROPINE ABBOJECT 1 MG/10 ML SYRINGE IVP PRN (16:52)
[2021-05-03] MEDS ORDERED: ePHEDrine 50 MG/ML VIAL IVP PRN (16:52)
[2021-05-03] MEDS ORDERED: METOCLOPRAMIDE 10 MG/2 ML VIAL IVP PRN (16:52)
[2021-05-03] MEDS ORDERED: NALOXONE 0.4 MG/ML VIAL IVP PRN (16:52)
[2021-05-03] MEDS ORDERED: ONDANSETRON 4 MG/2 ML VIAL IVP PRN (16:52)
[2021-05-03] MEDS ORDERED: fentaNYL 100 MCG/2 ML VIAL IVP PRN (16:52)
[2021-05-03] MEDS ORDERED: MORPHINE 2 MG/ML CARPUJECT IVP PRN (16:52)
[2021-05-03] MEDS ORDERED: HYDROmorphone 0.5 MG/0.5 ML SYRINGE IVP PRN (16:52)
--- NOTE | 2021-05-03 16:52 | ANESTHESIA ---
Pre-Anesthesia VS, & Labs - Diagnosis food bolus - Procedure EGD Vital Signs: Temp Pulse Resp BP Pulse Ox 36.9 C 58 L 20 152/80 H 95 05/03/21 15:03 05/03/21 15:03 05/03/21 15:03 05/03/21 15:03 05/03/21 15:03 Height: 6 ft Weight (kg): 106.594 kg Body Mass Index: 31.8 BMI Classification: Obese - NPO >8 hours - Lab Results Current Lab Results: Laboratory Tests 05/03/21 15:43: Sodium 140, Potassium 3.6, Chloride 102, Carbon Dioxide 31, Anion Gap 7.0, BUN 19, Creatinine 0.8, Estimated GFR (MDRD) 91, Glucose 130 H, Calcium 9.7, Total Bilirubin 0.6, AST 17, ALT 19, Alkaline Phosphatase 50, Total Protein 7.1, Albumin 4.3, Globulin 2.8, Albumin/Globulin Ratio 1.5, Lipase 23 05/03/21 15:43: WBC 5.8, RBC 4.78, Hgb 14.5, Hct 45.2, MCV 94.6 H, MCH 30.3, MCHC 32.1, RDW 15.4 H, Plt Count 151, MPV 10.5, Neut # (Auto) 3.7, Lymph # (Auto) 1.3 L, Harvey # (Auto) 0.6, Eos # (Auto) 0.2, Baso # (Auto) 0.1, Absolute Nucleated RBC 0.00, Nucleated RBC % 0.0 Lab results reviewed: Yes Fish Bones: 05/03/21 15:43 05/03/21 15:43 Home Medications and Allergies Active Medications Sodium Chloride (Normal Saline 0.9%) 1,000 mls @ 150 mls/hr IV .Q6H40M STA Stop: 05/03/21 22:07 ALPRAZolam [Xanax] 0.5 mg ORAL DAILY PRN 09/26/15 Aspirin [Aspir 81] 81 mg ORAL DAILY 09/26/15 Atorvastatin [Lipitor] 40 mg ORAL DAILY 09/26/15 Finasteride 5 mg ORAL DAILY 09/26/15 Metoprolol Tartrate 12.5 mg ORAL DAILY 09/26/15 Pantoprazole [Protonix] 20 mg ORAL DAILY 09/26/15 lisinopriL [Lisinopril] 5 mg ORAL DAILY 09/26/15 metFORMIN [Glucophage] 500 mg ORAL DAILY 09/26/15 Allergies/Adverse Reactions: Allergies Allergy/AdvReac Type Severity Reaction Status Date / Time No Known Drug Allergies Allergy Verified 05/03/21 14:37 Anes History & Medical History - Anesthetic History Anesthesia Complications: reports: No previous complications Family history of Anesthesia Complications: Denies Family history of Malignant Hyperthermia: Denies - Medical History Cardiovascular: reports: Hypertension, High cholesterol, Coronary artery disease, Atrial fibrillation, Valve disorder (hx TAVR and stents) Pulmonary: reports: None Gastrointestinal: reports: GERD Urinary: reports: Incontinence Neuro: reports: None Musculoskeletal: reports: Osteoarthritis Endocrine/Autoimmune: reports: Type 2 diabetes Blood Disorders: reports: None Skin: reports: None Smoking Status: Never smoker - Surgical History Eyes Ears Nose Throat (EENT): reports: Cataracts Cardiothoracic: reports: CABG, Coronary stent Dermatologic: reports: Skin cancer surgery Exam General: Alert, Oriented x3, Cooperative, No acute distress Dental: Partials Upper Mouth Openin Fingerbreadth Neck Mobility: Normal Mallampati classification: II Respiratory: Lungs clear, Normal breath sounds, No respiratory distress, No accessory muscle use Cardiovascular: Regular rate, Normal S1, Normal S2, No murmurs Plan Anesthesia Type: General Consent for Procedure(s) Verified and Reviewed: Yes Code Status: Attempt Resuscitation ASA classification: 3-Severe systemic disease Is this case an emergency?: Yes
[2021-05-03] MEDS ORDERED: LACTATED RINGERS 1,000 ML IV SCH (17:00)
[2021-05-03] MEDS ORDERED: GLYCOPYRROLATE 1 MG/5 ML VIAL ONE (17:29)
[2021-05-03] MEDS ORDERED: GLUCAGON 1 MG/ML VIAL ONE (18:33)
[2021-05-03] MEDS ORDERED: SUGAMMADEX 200 MG/2 ML VIAL IVP ONE (18:40)
[2021-05-03] MEDS ORDERED: LACTATED RINGERS 1,000 ML IV ONE (18:55)
[2021-05-03] MEDS ORDERED: METOPROLOL 5 MG/5 ML VIAL IVP ONE (19:11)
--- NOTE | 2021-05-03 19:18 | ANESTHESIA POST OP EVALUATION ---
Anesthesia Post Eval - Post Anesthesia Eval Vitals: Last Vital Signs Temp 35.6 C L 05/03/21 19:10 Pulse 69 05/03/21 19:10 Resp 20 05/03/21 19:10 BP 165/95 H 05/03/21 19:10 Pulse Ox 99 05/03/21 19:10 CV Function Including HR & BP: Stable Pain Control: Satisfactory Nausea & Vomiting: Negative Mental Status: Baseline Respiratory Status: Airway Patent Hydration Status: Satisfactory Anesthesia Complications: None
[2021-05-03 21:30] VITALS: BP 160/77
== END 2021-05-03 16:16 | disposition short-term general hospital (02) ==
LOC: ED 14:25 → SDS 16:15
PROVIDERS: ATTEND Surgery
DX: T18.128A Food in esophagus causing other injury, initial encounter (principal); X58.XXXA Exposure to other specified factors, initial encounter; K22.8 Other specified diseases of esophagus; I10 Essential (primary) hypertension; E78.00 Pure hypercholesterolemia, unspecified; I25.10 Atherosclerotic heart disease of native coronary artery without angina pectoris; I48.91 Unspecified atrial fibrillation; E11.9 Type 2 diabetes mellitus without complications; K21.9 Gastro-esophageal reflux disease without esophagitis; R32 Unspecified urinary incontinence; H91.90 Unspecified hearing loss, unspecified ear; Z96.5 Presence of tooth-root and mandibular implants; F41.9 Anxiety disorder, unspecified; M19.90 Unspecified osteoarthritis, unspecified site; E66.9 Obesity, unspecified; Z68.31 Body mass index [BMI] 31.0-31.9, adult; Z95.1 Presence of aortocoronary bypass graft; Z95.5 Presence of coronary angioplasty implant and graft; Z79.82 Long term (current) use of aspirin; Z79.84 Long term (current) use of oral hypoglycemic drugs; Z79.899 Other long term (current) drug therapy
CPT/HCPCS: 36415; 43247; 80053; 83690; 85025; 99284; 99285; A9270; J0330; J7120

== ENCOUNTER 2021-05-03 21:23 | Outpatient (CLI) | payer MEDICARE | END 2021-05-03 21:24 | disposition short-term general hospital (02) | LOC: EMS 21:23 | PROVIDERS: ATTEND Surgery | DX: K22.2 Esophageal obstruction (principal) | CPT/HCPCS: A0425; A0428 ==

== ENCOUNTER 2021-05-07 11:21 | Outpatient (CLI) | payer MEDICARE | END 2021-05-07 11:22 | disposition home or self-care (01) | LOC: LAB.S 11:21 | PROVIDERS: ATTEND Nurse Practitioner Family | DX: I48.3 Typical atrial flutter (principal) | CPT/HCPCS: 36416; 85610 ==